=== PATIENT | male | born 1960 | race Caucasian/White ===

== ENCOUNTER → 2020-11-22 | Day surgery (SDC) | payer OTHER ==
[~2020-11-22] MED LIST: ALPRAZOLAM 0.0.25 MG PO; CRESTOR10 MG PO; NORCO5 PO; NORVASC5 MG PO; OMEPRAZOLE40 MG PO; SYMBICORT160 MCG/4. INH
--- NOTE | ~2020-11-22 | OP ---
[facility] [address] [place] [address] [address] OPERATIVE REPORT Name: ABELARDO LOPEZ Room: [facility]..#: [id number] Admission: 11/22/20 Attend Phys: Bruno Conner Discharge: Date of : 60 Report #: [id number] THIS REPORT FOR: cc: Zahra Lizarraga MD, Ghazal A. MD ~ Bruno Conner MD DATE OF SERVICE: 11/22/2020 PREOPERATIVE DIAGNOSIS: Right recurrent inguinal hernia. POSTOPERATIVE DIAGNOSIS: Right recurrent inguinal hernia. OPERATION: Laparoscopic repair of recurrent right inguinal hernia with mesh. SURGEON: Bruno Conner MD ANESTHESIA: General. ESTIMATED BLOOD LOSS: Minimal. SPECIMEN: None. DESCRIPTION OF PROCEDURE: After informed consent was obtained, the patient was brought to the operating room and placed supine. SCDs were placed and working, preoperative antibiotics were administered, general anesthesia was induced. The abdomen was prepped and draped in the usual sterile fashion. A 10 mm incision was made below the umbilicus. Fascia was incised and a trocar was placed. Pneumoperitoneum was established. Right and left lower quadrant 5 mm trocars were placed. The peritoneum was scored at the right ASIS. Peritoneum was then incised and reflected inferiorly. He had a fairly large direct recurrent inguinal hernia. The hernia sac was fully reduced. I then identified all the cord structures. The epigastric and iliac vessels were protected at all times. The hernia having been fully reduced, I then inserted a large Bard 3DMax mesh. It was tacked to Troy's ligament with 2 absorbable tacks. I then reapproximated the peritoneum with a running 2-0 V-Loc suture. The ports were then removed under direct vision. The fascia at the umbilicus was closed with a [id number] 0 Vicryl. Skin was closed with 4-0 Monocryl. Incisions were dressed with Steri-Strips. COMPLICATIONS: [place] [address] OPERATIVE REPORT Name: ABELARDO LOPEZ Room: [facility].#: [id number] Admission: 11/22/20 Attend Phys: Bruno Conner Discharge: Date of : 60 Report #: [id number] DISPOSITION: The patient was taken to recovery in satisfactory condition. By: 1211 [id number] Conner MD /nt
[2020-11-22 09:37] LABS: HEMATOCRIT 45.2 % (42.0-52.0); HEMOGLOBIN 15.7 gm/dL (14.0-18.0); MCHC 34.7 g/dL (28.0-37.0); MCV 83.5 fL (80.0-100.0); MPV 7.8 fl. (7.2-11.1); RBC 5.41 mil/uL (4.50-6.00); RDW-CV 14.3 % (10.5-14.5)
--- NOTE | 2020-11-22 09:44 | EKG ---
[place] [address] ELECTROCARDIOGRAM REPORT Name: ABELARDO LOPEZ Room: [facility]#: [id number] Admission: 11/22/20 Attend Phys: Bruno Mann Discharge: Date of : 60 Date of Service: 11/22/20902 Report #: [id number] THIS REPORT FOR: //name// [facility] Test Date: 2020-11-22 Test Time: 09:03:37 Pat Name: ABELARDO LOPEZ Department: Room: Gender: [employer] Yard: : 1960 Requested By: Bruno Conner Order Number: [id number] Mike MD: Joe Dueñas Measurements Intervals [place] Rate: 62 P: -22 [place]: 187 QRS: -31 QRSD: 91 T: 6 QT: 398 QTc: 405 Interpretive Statements Sinus rhythm Left axis deviation No previous ECG available for comparison Electronically Signed On 11-22-2020 9:44:21 [employer] by Joe Dueñas [email or web address] <ELECTRONICALLY SIGNED> By: Joe Dueñas MD, [facility] 11/22/20943 2 2 Joe Dueñas MD, FAC /EPI
[2020-11-22 09:47] LABS: CALCIUM 8.8 mg/dL (8.5-10.1); POTASSIUM 4.2 mmol/L (3.5-5.1)
[2020-11-22 09:52] LABS: ALBUMIN 3.7 g/dL (3.4-5.0); TOTAL BILIRUBIN 0.6 mg/dL (<0.1-1.0); TOTAL PROTEIN 6.5 g/dL (6.4-8.2)
== END | disposition home or self-care (01) ==
LOC: M.SUR 08:19
PROVIDERS: ATTEND Surgery
DX: K40.91 Unilateral inguinal hernia, without obstruction or gangrene, recurrent (principal); I10 Essential (primary) hypertension; J44.9 Chronic obstructive pulmonary disease, unspecified; K21.9 Gastro-esophageal reflux disease without esophagitis; F41.9 Anxiety disorder, unspecified; Z98.890 Other specified postprocedural states; Z79.899 Other long term (current) drug therapy; Z20.828 Contact with and (suspected) exposure to other viral communicable diseases; Z87.891 Personal history of nicotine dependence; Z20.822 Contact with and (suspected) exposure to COVID-19